=== PATIENT | male | born 1960 | race Caucasian/White ===

== ENCOUNTER 2017-08-11 09:53 | Emergency (ER) | payer BC ==
--- NOTE | 2017-08-11 12:12 | UC ---
Throat Pain/Nasal [place]cell[place] HPI - History of Current Complaint Chief Complaint: UCRespiratory Stated Complaint: HEADACHE,CONGESTED Time Seen by Provider: 08/11/17 12:12 Pain Intensity: 0 - Allergies/Home Medications Allergies/Adverse Reactions: Allergies Allergy/AdvReac Type Severity Reaction Status Date / Time No Known Allergies Allergy Verified 08/11/17 12:08 Home Medications: Home Medications Dextromethorphan-Phenylephrine [Pili-[place] Plus Severe 10-5-325 mg] 1 cap PO DAILY PRN 08/11/17 [History Confirmed 08/11/17] guaiFENesin ER TAB [Mucinex*] 2 tab PO BID PRN 08/11/17 [History Confirmed 08/11] PMH/Surg Hx/FS Hx/Imm Hx - Surgical History Surgical History: None - Social History Alcohol Use: Rare Substance Use Type: None Smoking Status (MU): Never Smoked Tobacco Physical Exam Vital Signs: Initial Vital Signs Temp 98.9 F 08/11/17 12:05 Pulse 90 08/11/17 12:05 Resp 14 08/11/17 12:05 BP 165/95 08/11/17 12:05 Pulse Ox 100 08/11/17 12:05 Discharge - Discharge Plan Referrals: No Primary Care Phys,NOPCP [Primary Care Provider] -
--- NOTE | 2017-08-11 12:25 | UC ---
Throat Pain/Nasal Marcell[place] HPI - HPI Summary HPI Summary: Patient presents with complaints of sinus pain, pressure, and thick green, bloody nasal congestion. He states he has pressure of the sinuses, he motions to the forehead. He also states he bought OTC cough and cold remedy medications and he has taken them all week-end with no relief of his symptoms. He states at times he has a headache, again motions over the forehead. He denies dizziness, light-headedness, double vision, blurred vision, numbness, tingling or weakness. - History of Current Complaint Chief Complaint: UCRespiratory Stated Complaint: HEADACHE,CONGESTED Time Seen by Provider: 08/11/17 12:12 Hx Obtained From: Patient Onset/Duration: Gradual Onset, Lasting Days Severity: Moderate Pain Intensity: 0 Cough: Sputum Appears - thick green and bloody Associated Signs & Symptoms: Positive: Sinus Discomfort, Nasal Discharge - Epiglottits Risk Factors Epiglottis Risk Factors: Negative - Allergies/Home Medications Allergies/Adverse Reactions: Allergies Allergy/AdvReac Type Severity Reaction Status Date / Time No Known Allergies Allergy Verified 08/11/17 12:08 Home Medications: Home Medications Dextromethorphan-Phenylephrine [Pili-[place] Plus Severe 10-5-325 mg] 1 cap PO DAILY PRN 08/11/17 [History Confirmed 08/11/17] guaiFENesin ER TAB [Mucinex*] 2 tab PO BID PRN 08/11/17 [History Confirmed 08/11] PMH/Surg Hx/FS Hx/Imm Hx Previously Healthy: Yes - Surgical History Surgical History: None - Family History Known Family History: Positive: None - Social History Occupation: Employed Full-time Alcohol Use: Rare Substance Use Type: None Smoking Status (MU): Never Smoked Tobacco Review of Systems Constitutional: Negative Skin: Negative Eyes: Negative ENT: Nasal Discharge, Sinus Congestion, Sinus Pain/Tenderness Respiratory: Negative Cardiovascular: Negative Gastrointestinal: Negative Genitourinary: Negative Motor: Negative Neurovascular: Negative Is Patient Immunocompromised?: No All Other Systems Reviewed And Are Negative: Yes Physical Exam Triage Information Reviewed: Yes Appearance: Well-Appearing Vital Signs: Initial Vital Signs Temp 98.9 F 08/11/17 12:05 Pulse 90 08/11/17 12:05 Resp 14 08/11/17 12:05 BP 165/95 08/11/17 12:05 Pulse Ox 100 08/11/17 12:05 Vital Signs Reviewed: Yes Eye Exam: Normal ENT: Positive: Nasal congestion, Nasal drainage, Sinus tenderness Neck exam: Normal Neck: Positive: 1 Respiratory Exam: Normal Respiratory: Positive: Lungs clear, Normal breath sounds, No respiratory distress Cardiovascular Exam: Normal Abdominal Exam: Normal Musculoskeletal Exam: Normal Neurological Exam: Normal Psychological Exam: Normal Skin Exam: Normal Throat Pain/Nasal Course/Dx - Course Course Of Treatment: Patient presents with 4 days onset complaints of thick green bloody nasal discharge. He has treated with OTC Pili-selzer, and decongestents. He reports ongoing symtpoms and therefore will treat with Augmentin 500 mg by mouth twice daily for 10 days. He was discharged home in stable conditions. - Differential Dx/Diagnosis Differential Diagnosis/HQI/PQRI: Sinusitis Provider Diagnoses: sinusitis Discharge - Discharge Plan Condition: Stable Disposition: HOME Prescriptions: Amoxicillin/Clavulanate TAB* [Augmentin TAB 500 mg*] 500 mg PO BID #20 tab Patient Education Materials: Sinusitis (ED) Referrals: No Primary Care Phys,NOPCP [Primary Care Provider] -
[2017-08-11 12:47] VITALS: BP 165/95
== END 2017-08-11 12:40 | disposition home or self-care (01) ==
LOC: UCEAST 09:53
DX: J32.9 Chronic sinusitis, unspecified (principal)
CPT/HCPCS: 99202; G0463